=== PATIENT | male | born 1980 | race Caucasian/White ===

== ENCOUNTER 2018-05-05 15:35 | Inpatient (IN) | payer OTHER ==
[2018-05-05 16:55] LABS: ADD MAN DIFF? NO
[2018-05-05] MEDS: morphine 4 MG/ML VIAL IV (16:55)
[2018-05-05] MEDS: ONDANSETRON 4 MG INJ IV (16:55)
[2018-05-05] MEDS: ASPIRIN 325 MG TAB PO (16:56)
[2018-05-05 16:57] LABS: WHITE BLOOD COUNT 6.3 10^3/ul (4.8-10.8)
[2018-05-05 16:57] LABS: BASOPHILS % 0.5 % (0.0-2.0); EOSINOPHILS # 0.1 10^3/ul (0.0-0.5); EOSINOPHILS % 2.2 % (0.0-7.0); HEMATOCRIT 33.7 % (42.0-52.0); LYMPHOCYTES # 1.7 10^3/ul (0.8-2.9); LYMPHOCYTES % 26.3 % (15.0-51.0); MEAN CORPUSCULAR HEMOGLOBIN 30.4 pg (29.0-33.0); MEAN CORPUSCULAR HGB CONC 32.6 g/dl (32.0-37.0); MEAN CORPUSCULAR VOLUME 93.1 fl (82.0-101.0); MEAN PLATELET VOLUME 11.3 fl (7.4-10.4); MONOCYTE # 0.6 10^3/ul (0.3-0.9); NEUTROPHIL # 3.9 10^3/ul (1.6-7.5); NEUTROPHILS % 60.8 % (39.0-77.0); PLATELET COUNT 176 10^3/UL (140-415); RED BLOOD COUNT 3.62 10^6/ul (4.70-6.10); RED CELL DISTRIBUTION WIDTH 13.2 % (11.5-14.5)
[2018-05-05 17:21] LABS: ALANINE AMINOTRANSFERASE 26 IU/L (13-69); ALBUMIN 4.4 g/dl (3.3-4.9); ALBUMIN/GLOBULIN RATIO 1.22; ALKALINE PHOSPHATASE 96 IU/L (42-121); ANION GAP 14 (8-16); ASPARTATE AMINO TRANSFERASE 14 IU/L (15-46); BILIRUBIN,INDIRECT 0.2 mg/dl (0-1.1); BILIRUBIN,TOTAL 0.2 mg/dl (0.2-1.3); BLOOD UREA NITROGEN 28 mg/dl (7-20); CALCIUM 9.1 mg/dl (8.4-10.2); CARBON DIOXIDE 30 mmol/L (21-31); CHLORIDE 102 mmol/L (97-110); CREATINE KINASE 310 IU/L (23-200); CREATININE 6.85 mg/dl (0.61-1.24); GLUCOSE 96 mg/dl (70-220); POTASSIUM 3.9 mmol/L (3.5-5.1); SODIUM 142 mmol/L (135-144)
[2018-05-05 17:23] LABS: INR 1.01; PROTIME 13.4 Sec (11.9-14.9)
[2018-05-05 17:33] LABS: CK INDEX 0.1; CK-MB 0.29 ng/ml (0.0-2.4); TROPONIN-I < 0.012 ng/ml (0.000-0.120)
[2018-05-05] MEDS ORDERED: MAGNESIUM HYDROXIDE 30ML CUP PO (18:30)
[2018-05-05] MEDS ORDERED: DOCUSATE SODIUM 100 MG CAP PO (18:30)
[2018-05-05] MEDS ORDERED: ACETAMINOPHEN 325 MG TAB PO ×2 (18:30)
[2018-05-05] MEDS ORDERED: ONDANSETRON 4 MG INJ IV ×2 (18:30)
[2018-05-05] MEDS ORDERED: NACL 0.9% 3 ML SYG IV (18:30)
[2018-05-05] MEDS ORDERED: NITROGLYCERIN (SL) 0.4 MG TAB SL (18:30)
[2018-05-05 20:11] LABS: MAGNESIUM 2.5 mg/dl (1.7-2.5)
[2018-05-05 20:59] LABS: CREATINE KINASE 269 IU/L (23-200)
[2018-05-05 21:11] LABS: CK INDEX 0.1
[2018-05-05 21:12] LABS: CK-MB 0.27 ng/ml (0.0-2.4); TROPONIN-I < 0.012 ng/ml (0.000-0.120)
[2018-05-05 23:44] LABS: CREATINE KINASE 244 IU/L (23-200)
[2018-05-05 23:54] LABS: CK INDEX 0.1
[2018-05-05 23:55] LABS: CK-MB 0.22 ng/ml (0.0-2.4); TROPONIN-I < 0.012 ng/ml (0.000-0.120)
[2018-05-06 04:44] LABS: CREATINE KINASE 224 IU/L (23-200)
[2018-05-06 04:46] LABS: ALBUMIN 4.1 g/dl (3.3-4.9); ANION GAP 17 (8-16); BLOOD UREA NITROGEN 36 mg/dl (7-20); CALCIUM 9.1 mg/dl (8.4-10.2); CARBON DIOXIDE 29 mmol/L (21-31); CHLORIDE 101 mmol/L (97-110); CREATININE 8.36 mg/dl (0.61-1.24); GLUCOSE 93 mg/dl (70-220); MAGNESIUM 2.6 mg/dl (1.7-2.5); PHOSPHORUS 4.2 mg/dl (2.5-4.9); POTASSIUM 4.3 mmol/L (3.5-5.1); SODIUM 143 mmol/L (135-144)
[2018-05-06 04:56] LABS: CK INDEX 0.1
[2018-05-06 04:57] LABS: CK-MB < 0.22 ng/ml (0.0-2.4); TROPONIN-I < 0.012 ng/ml (0.000-0.120)
[2018-05-06 05:22] LABS: ADD MAN DIFF? NO
[2018-05-06 05:35] LABS: BASOPHILS % 0.4 % (0.0-2.0); EOSINOPHILS # 0.2 10^3/ul (0.0-0.5); HEMATOCRIT 34.8 % (42.0-52.0); HEMOGLOBIN 11.2 g/dl (14.0-18.0); LYMPHOCYTES # 2.8 10^3/ul (0.8-2.9); LYMPHOCYTES % 39.5 % (15.0-51.0); MEAN CORPUSCULAR HEMOGLOBIN 30.4 pg (29.0-33.0); MEAN CORPUSCULAR HGB CONC 32.2 g/dl (32.0-37.0); MEAN CORPUSCULAR VOLUME 94.6 fl (82.0-101.0); MEAN PLATELET VOLUME 11.3 fl (7.4-10.4); MONOCYTE # 0.7 10^3/ul (0.3-0.9); NEUTROPHIL # 3.3 10^3/ul (1.6-7.5); NEUTROPHILS % 46.8 % (39.0-77.0); PLATELET COUNT 172 10^3/UL (140-415); RED BLOOD COUNT 3.68 10^6/ul (4.70-6.10); RED CELL DISTRIBUTION WIDTH 13.3 % (11.5-14.5)
[2018-05-06 05:35] LABS: WHITE BLOOD COUNT 7.1 10^3/ul (4.8-10.8)
[2018-05-06] MEDS ORDERED: AMLODIPINE 10 MG TAB PO (09:00)
[2018-05-06] MEDS: CALCIUM ACETATE 667 MG CAP PO ×2 (11:51→18:16)
[2018-05-06] MEDS: METOPROLOL 25 MG TAB PO (12:02)
[2018-05-06] MEDS: NIFEdipine (XL) 60 MG TAB PO (12:03)
[2018-05-06] MEDS: LOSARTAN 50 MG TAB PO (12:03)
[2018-05-06] MEDS: VERAPAMIL (SR) 120 MG TAB PO ×2 (15:43→23:36)
[2018-05-06] MEDS: FAMOTIDINE 20 MG TAB PO (20:37)
[2018-05-07 06:05] LABS: ADD MAN DIFF? NO
[2018-05-07 06:18] LABS: WHITE BLOOD COUNT 5.7 10^3/ul (4.8-10.8)
[2018-05-07 06:18] LABS: BASOPHILS % 0.4 % (0.0-2.0); EOSINOPHILS # 0.2 10^3/ul (0.0-0.5); EOSINOPHILS % 4.2 % (0.0-7.0); HEMOGLOBIN 10.4 g/dl (14.0-18.0); LYMPHOCYTES % 35.7 % (15.0-51.0); MEAN CORPUSCULAR HGB CONC 33.5 g/dl (32.0-37.0); MEAN CORPUSCULAR VOLUME 92.5 fl (82.0-101.0); MEAN PLATELET VOLUME 11.9 fl (7.4-10.4); MONOCYTE # 0.6 10^3/ul (0.3-0.9); MONOCYTES % 10.8 % (0.0-11.0); NEUTROPHIL # 2.8 10^3/ul (1.6-7.5); NEUTROPHILS % 48.7 % (39.0-77.0); PLATELET COUNT 154 10^3/UL (140-415); RED BLOOD COUNT 3.35 10^6/ul (4.70-6.10); RED CELL DISTRIBUTION WIDTH 13.1 % (11.5-14.5)
[2018-05-07 07:23] LABS: ALBUMIN 3.9 g/dl (3.3-4.9); ANION GAP 20 (8-16); BLOOD UREA NITROGEN 54 mg/dl (7-20); CALCIUM 8.8 mg/dl (8.4-10.2); CARBON DIOXIDE 28 mmol/L (21-31); CHLORIDE 98 mmol/L (97-110); CREATININE 10.86 mg/dl (0.61-1.24); GLUCOSE 92 mg/dl (70-220); MAGNESIUM 2.8 mg/dl (1.7-2.5); PHOSPHORUS 4.7 mg/dl (2.5-4.9); POTASSIUM 4.7 mmol/L (3.5-5.1); SODIUM 141 mmol/L (135-144)
[2018-05-07] MEDS: LOSARTAN 50 MG TAB PO (08:43)
[2018-05-07] MEDS: VERAPAMIL (SR) 120 MG TAB PO (08:43)
[2018-05-07] MEDS: CALCIUM ACETATE 667 MG CAP PO ×3 (08:45→17:12)
[2018-05-07 14:30] LABS: HEPATITIS B SURFACE ANTIGEN NEGATIVE (NEGATIVE)
== END 2018-05-07 18:57 | disposition home or self-care (01) | DRG 308 ==
LOC: MS3 18:33 → E/R 15:35 → MS4 05-06 21:50
PROC: 5A1D70Z Performance of Urinary Filtration, Intermittent, Less than 6 Hours Per Day (ICD-10-PCS; principal; 2018-05-06)
DX: I49.3 Ventricular premature depolarization (principal); N18.6 End stage renal disease; I12.0 Hypertensive chronic kidney disease with stage 5 chronic kidney disease or end stage renal disease; N17.9 Acute kidney failure, unspecified; E78.5 Hyperlipidemia, unspecified; Z99.2 Dependence on renal dialysis
CPT/HCPCS: 36415; 71045; 80053; 80069; 82550; 82553; 83735; 84443; 84484; 85025; 85610; 85730; 87340; 90935; 93005; 93306; 99285-25